=== PATIENT | male | born 1945 | race Caucasian/White ===

== ENCOUNTER 2018-09-18 09:57 | Observation (INO) ==
[2018-09-18] MEDS ORDERED: ASPIRIN PO ONE (10:13)
--- NOTE | 2018-09-18 10:24 | EKG Report ---
Test Performed on : 09/18/2018 10:04:41 AM Test Reason : CP Blood Pressure : / mmHG Vent. Rate : 064 BPM Atrial Rate : 064 BPM P-R Int : 162 ms QRS Dur : 086 ms QT Int : 408 ms P-R-T Axes : 046 000 011 degrees QTc Int : 420 ms Normal sinus rhythm. Normal ECG When compared with ECG of 21-APR-2012 13:00, No significant change was found Unconfirmed Result
[2018-09-18] MEDS ORDERED: NITROGLYCERIN TOP ONE (11:00)
[2018-09-18 12:31] LABS: BASO# 0.01 X1000 (0.0-0.2); BASO% 0.2 % (0.0-0.8); EOS# 0.04 X1000 (0.0-0.7); EOS% 0.7 % (0.0-10.0); HEMATOCRIT 39.6 % (42.0-52.0); HEMOGLOBIN 12.7 g/dL (14.0-18.0); LYMPH# 0.62 X1000 (1.2-3.4); MCH 29.5 PG (27-31); MCHC 32.1 g/dL (33-37); MCV 91.9 FL (81-99); MONO# 0.29 X1000 (0.11-0.59); MONO% 5.2 % (1.7-9.3); MPV 9.8 FL (7.4-10.4); NEUT# 4.66 X1000 (1.4-6.5); NEUT% 82.9 % (42.2-75.2); PLT 231 X1000 (130-400); RBC 4.31 XMIL (4.7-6.1); RDW 13.1 % (11.5-14.5); WBC 5.62 X1000 (4.8-10.8)
[2018-09-18 12:44] LABS: INR 0.94; PROTIME 13.4 Seconds (11.0-16.0)
[2018-09-18 12:45] LABS: PTT 28.7 Seconds (22.3-41.8)
[2018-09-18 12:51] LABS: ALB/GLOB RATIO 1.6; ALBUMIN 4.1 g/dL (3.5-5.0); CREATININE 1.2 mg/dL (0.7-1.2); POTASSIUM 4.7 mmol/L (3.5-5.1); TOTAL BILIRUBIN 0.34 mg/dL (0.20-1.00); TOTAL PROTEIN 6.7 g/dL (6.3-8.3)
--- NOTE | 2018-09-18 13:26 | PROVIDER DOCUMENTATION ---
This chart was entered by Florentin Norman Scribe, acting as scribe for Mandeep Peters MD. HPI-Chest Pain - General Chief Complaint: Chest Pain Stated Complaint: CHEST PAIN Time Seen by Provider: 09/18/18 10:25 Source: patient, family () Allergies/Adverse Reactions: Patient Allergies Allergy/AdvReac Type Severity Reaction Status Date / Time No Known Allergies Allergy Verified 09/18/18 10:12 Home Medications: Home Medication List Medication Instructions Recorded Confirmed Last Taken Type Cyclobenzaprine [Flexeril] 10 mg PO Q8HR #20 tablet 04/21/12 Unknown Rx Hydrocodone/Acetaminophen [Lortab 1 each PO Q4HR #20 tablet 04/21/12 Unknown Rx 7.5-500 Tablet] - History of Present Illness-CP Nature of Presenting Problem: Pt is a 73 y/o M presents to the ED with intermittent chest pain that occurs in the mornings after awakening and last about 5-10 minutes then goes away. The reports today the pain was sharper than it has been. Pt reports in exam the pain is a 5 out of 10. He called his PCP and they suggested he come to the ED for evaluation. 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 She says the pain stays in one place. Location: reports: substernal (left) Chest Pain Radiation: reports: no radiation Quality of Pain: reports: sharp Severity in ED: moderate Onset/Duration: 5 days ago Timing: still present Context/Activities at Onset: reports: none Modifying Factors: improves with: nothing Associated Symptoms: denies: diaphoresis, dizziness, edema, shortness of breath, vomiting, weakness Nitro Today/Relief: no nitro taken today Aspirin Treatment Today: 325 mg x 1, provided by ED Prior Chest Pain/Cardiac Workup: reports: other (CTA in 2015) Similar Symptoms Previously?: No Recently Seen Here or By Another Healthcare Provider: No Review of Systems - Adult - REVIEW OF SYSTEMS - ADULT Constitutional: denies: chills, fever Eyes: reports: no symptoms reported Ears, Nose, Mouth & Throat: reports: no symptoms reported Cardiovascular: reports: chest pain. denies: edema, palpitations Respiratory: denies: cough, shortness of breath Gastrointestinal: denies: abdominal pain, nausea, vomiting Genitourinary: denies: dysuria, discharge Musculoskeletal: denies: back pain, neck pain Integumentary: reports: no symptoms reported Neurological: reports: no symptoms reported Psychiatric: reports: no symptoms reported Endocrine: reports: no symptoms reported Hematologic/Lymphatic: reports: no symptoms reported Allergic/Immunologic: reports: no symptoms reported All Other Systems: Reviewed and Negative Past History - Adult - PAST MEDICAL HISTORY-ADULT Review of Records: reports: Old Records Reviewed, Nursing Assessment Review, Medications Reviewed - SOCIAL HISTORY Smoking: non-smoker, quit greater than 1 year (quit 25 years ago) Substance Use: none/never Living Situation: family Physical Exam-General - PHYSICAL EXAM-ADULT Initial Vital Signs Reviewed: Yes - CONSTITUTIONAL General Appearance: appears well, alert, no apparent distress - EYES Eyes: PERRL/EOMI, pink conjunctivae - HEAD, EARS, NOSE, MOUTH & THROAT HENMT: moist mucous membranes, normal ENT inspection, pharynx normal - NECK Neck: non-tender, full range of motion, supple, normal inspection - RESPIRATORY Respiratory: lungs clear, normal breath sounds, no pleuratic chest pain, no respiratory distress, no accessory muscle use - CARDIOVASCULAR Cardiovascular: normal peripheral pulses, regular rate, rhythm - GASTROINTESTINAL (ABDOMEN) Abdominal Exam: normal bowel sounds, non tender, soft - MUSCULOSKELETAL Back Exam: normal inspection, no CVA tenderness, no vertebral tenderness Extremity: normal range of motion, non-tender, normal gait, normal inspection - SKIN Integumentary: normal color, normal turgor, warm/dry - NEUROLOGIC Neurologic: grossly normal, no motor/sensory deficits - PSYCHIATRIC Psych/Mental Status: normal mood/affect, normal thought content, normal thought process, oriented x 3 - HEART Score HEART Score: History: Moderately Suspicious HEART Score: ECG: Normal HEART Score: Age: > or = 65 Years HEART Score: Risk Factors for Atherosclerotic Disease: 1 or 2 Risk Factors HEART Score: Troponin: < or = Normal Limit Total HEART Score:: 4 Progress - PLAN OF CARE/RESULTS Progress/Plan/Lab Results: Vital Signs - 8 hr 09/18/18 10:09 09/18/18 10:40 09/18/18 10:50 Temperature 97.5 F L Pulse Rate 64 62 63 Respiratory Rate 18 14 15 Blood Pressure 137/81 O2 Sat by Pulse Oximetry 98 98 98 09/18/18 11:00 09/18/18 11:10 09/18/18 11:20 Temperature Pulse Rate 61 66 60 Respiratory Rate 20 16 17 Blood Pressure O2 Sat by Pulse Oximetry 98 99 95 09/18/18 11:30 09/18/18 11:40 09/18/18 11:50 Temperature Pulse Rate 60 61 61 Respiratory Rate 16 14 16 Blood Pressure O2 Sat by Pulse Oximetry 95 95 96 09/18/18 12:00 09/18/18 12:10 Temperature Pulse Rate 58 L 61 Respiratory Rate 15 16 Blood Pressure O2 Sat by Pulse Oximetry 97 96 Laboratory Results - last 24 hr 09/18/18 09/18/18 09/18/18 12:06 12:06 12:06 WBC 5.62 RBC 4.31 L Hgb 12.7 L Hct 39.6 L MCV 91.9 MCH 29.5 MCHC 32.1 L RDW Std Deviation 13.1 Plt Count 231 MPV 9.8 Immature Gran % (Auto) 0.0 Neut % (Auto) 82.9 H Lymph % (Auto) 11.0 L [place] % (Auto) 5.2 Eos % (Auto) 0.7 Baso % (Auto) 0.2 Immature Gran # (Auto) 0.00 Neut # (Auto) 4.66 Lymph # (Auto) 0.62 L [place] # (Auto) 0.29 Eos # (Auto) 0.04 Baso # (Auto) 0.01 PT INR PTT (Actin FS) Sodium 137 Potassium 4.7 Chloride 102 Carbon Dioxide 24 L Anion Gap 11 BUN 24 H Creatinine 1.2 Estimated GFR/1.73 m2 59 BUN/Creatinine Ratio 20 Glucose 97 Calculated Osmolality 278 Calcium 9.0 Total Bilirubin 0.34 AST 17 ALT 12 Alkaline Phosphatase 95 Creatine Kinase 84 Troponin T Dqo-[id number]-Iknqjofbuph Pept 86 Total Protein 6.7 Albumin 4.1 Globulin 2.6 Albumin/Globulin Ratio 1.6 09/18/18 09/18/18 12:06 12:06 WBC RBC Hgb Hct MCV MCH MCHC RDW Std Deviation Plt Count MPV Immature Gran % (Auto) Neut % (Auto) Lymph % (Auto) [place] % (Auto) Eos % (Auto) Baso % (Auto) Immature Gran # (Auto) Neut # (Auto) Lymph # (Auto) [place] # (Auto) Eos # (Auto) Baso # (Auto) PT 13.4 INR 0.94 PTT (Actin FS) 28.7 Sodium Potassium Chloride Carbon Dioxide Anion Gap BUN Creatinine Estimated GFR/1.73 m2 BUN/Creatinine Ratio Glucose Calculated Osmolality Calcium Total Bilirubin AST ALT Alkaline Phosphatase Creatine Kinase Troponin T < 0.010 Wuh-P-Vhtyievqooj Pept Total Protein Albumin Globulin Albumin/Globulin Ratio Orders Category Date Time Status Cardiac Monitoring DIRECTED Care 09/18/18 10:13 Active Oxygen Therapy- ED Nursing DIRECTED Care 09/18/18 10:13 Active Saline Loc NOW Care 09/18/18 10:13 Active CHEST-1 VIEW [RAD] Stat Exams 09/18/18 10:59 Taken CBC WITH ELECTRONIC DIFF [HEME] Stat Lab 09/18/18 12:06 Completed CK PROFILE [SP CHEM] Stat Lab 09/18/18 12:06 Completed COMPREHENSIVE METABOLIC PANEL [CHEM] Stat Lab 09/18/18 12:06 Completed PRO B-NATRIURETIC PEPTIDE Stat Lab 09/18/18 12:06 Completed PROTIME WITH INR [COAG] Stat Lab 09/18/18 12:06 Completed PTT [COAG] Stat Lab 09/18/18 12:06 Completed TROPONIN T Stat Lab 09/18/18 12:06 Completed Aspirin Med 09/18/18 10:13 Discontinued 325 mg PO NOW ONE Nitroglycerin Med 09/18/18 11:00 Discontinued 1 inch TOP NOW ONE CP/SOB/Palp >45 yrs of Age Stat Oth 09/18/18 10:13 Ordered EKG [EKG] Stat Ther 09/18/18 10:13 Draft Result Diagrams: 09/18/18 12:06 09/18/18 12:06 - REASSESSMENT Reassessment #1 Time Reassessed: 13:24 Status: improving (following ASA and NTG paste, pt states pain now 'gone.' I advised admission for further eval, consideration of stress test, pt and spouse agree.) - EKG 1 Time of EKG reading by physician:: 10:04 EKG Read and Signed by:: Mandeep Peters EKG Interpretation (*Must complete 3 of following elements*): Normal Rate: 64 Rhythm: NSR [place]: normal QRS: normal PA Interval: normal ST Wave: normal - CONSULTS/PCP/HOSPITALIST Notification #1 *Consult/PCP/Hospitalist*: Hospitalist- Dr Cortes Time Discussed: 13:23 Reason/Comments: observation Consult Disposition: Admit, other (Admit to [facility]) Departure - Departure Date of Disposition Decision: 09/18/18 Time of Disposition Decision: 13:25 DIAGNOSIS: Chest pain Disposition: ADMITTED INPATIENT 09 Certified Medical Emergency: Emergent Condition: Stable Referrals and Follow-Ups: Aleisha Nguyễn MD [Primary Care Provider] - - Critical Care Note This patient required my direct & personal management of CC.: No Attestation - Physician/ SONNY Attestation The physician spent face to face time with patient:: Yes Advanced Practice Provider documentation review:: Supervising physician onsite and consulted in the evaluation and care of this patient. The physician did have a face to face encounter with the patient. This chart was documented by the indicated scribe, (Florentin Norman Scribe) and accurately reflects the services I performed and decisions made by me, Mandeep Peters MD, as attested by the provider's signature.
--- NOTE | 2018-09-18 13:58 | Diag Imaging Result Doc PS360 ---
EXAM: CHEST-1 VIEW HISTORY: chest pain TECHNIQUE: Chest single view COMPARISON: 04/21/2012 FINDINGS: The lungs are well expanded. The heart is not enlarged. The vessels are not distended. There are no infiltrates. No effusion identified. There is a small hiatal hernia. IMPRESSION: No acute abnormality Electronically signed by Dain Syed 09/18/2018 1:56 PM
[2018-09-18] MEDS ORDERED: LOVENOX SUBQ SCH (14:30)
--- NOTE | 2018-09-18 14:57 | HISTORY AND PHYSICAL ---
PRIMARY CARE PHYSICIAN: Dr. Aleisha Nguyễn CHIEF COMPLAINT: Chest pain. HISTORY OF PRESENT ILLNESS: Mr. Milligan is a 73-year-old male with a history of very mild nonobstructive coronary artery disease per coronary angiography CT in 2014, also with a history of hypertension, hyperlipidemia, and with radiographic evidence of emphysema, who presents with progressively worse chest pain over the past 3 days. Chest pain is described as diffuse, left-sided pain, but is shooting in nature, but does not radiate and is not brought on with anything specific. Pain only lasts seconds to minutes and is not relieved with anything on its own. The pain is not associated with dyspnea, nausea, vomiting or diaphoresis. His reports that he has occasional lower extremity edema, and the patient himself reports that he has occasional and very mild chest pain when he will walk up a flight of steps. He has not had any fever or chills. No cough or sinus drainage. He denies any overt abdominal pain, diarrhea, constipation or dysuria. He came to the ER today for evaluation. In the ER, his labs and diagnostics did not reveal anything acute. He has very mild anemia, and his EKG shows sinus rhythm with very nonspecific ST changes. It was felt he would benefit from outpatient admission. His vitals are stable. He will be admitted for further treatment and evaluation. PAST MEDICAL HISTORY: 1. Mild nonobstructive coronary artery disease per coronary angiography CT on 09/25/2014. 2. Radiographic evidence of emphysema on CT in 2011. 3. Hypertension. 4. Hyperlipidemia. 5. Gastroesophageal reflux. PAST SURGICAL HISTORY: None. SOCIAL HISTORY: He quit smoking 25 years ago. He did smoke, he said, from the time he was a child up until around 49 years. He denies any current tobacco, alcohol or drug use. He is . is at the bedside. FAMILY HISTORY: Both parents , for the most part unknown. He said his mother possibly from congestive heart failure. He has a sister with a pacemaker. REVIEW OF SYSTEMS: A 14-point review of systems was obtained and found to be negative with the exception of the HPI. ALLERGIES: No known drug allergies. HOME MEDICATIONS: Yet to be compiled. PHYSICAL EXAMINATION: VITAL SIGNS: Blood pressure is 137/81, heart rate is 61, respiratory rate is 18, O2 saturation is 96% on room air, temperature 97.5. GENERAL: This is a 73-year-old male lying in the hospital bed in no acute distress. NEUROLOGICAL: Awake, alert and oriented. Follows commands. No focal deficits. HEENT: Head is atraumatic and normocephalic. Pupils are equal, round and reactive to light. Oral mucosa is moist. NECK: Trachea is midline. There is no JVD. CHEST: Diminished at the bases but clear to auscultation bilaterally. CARDIOVASCULAR: Regular rate and rhythm. S1 and S2 noted. No murmurs. GASTROINTESTINAL: Soft, nondistended and nontender. Bowel sounds positive. EXTREMITIES: No edema. Pulses are 1+ bilaterally. DIAGNOSTIC DATA: Chest x-ray has not been reported as of yet. EKG is sinus rhythm without acute ST changes. WBC is 5.68, hemoglobin 12.7, hematocrit 39.6. INR is 0.94. Chemistries unremarkable. Troponin is negative x1 set. ASSESSMENT AND PLAN: 1. Chest pain. Atypical in nature. We will check an echocardiogram and consult Cardiology for ischemic evaluation, as he does have very mild nonobstructive coronary artery disease, but that was some time ago. We will make sure he is on daily aspirin, follow telemetry and follow cardiac enzymes. 2. Hypertension. Continue home medications once reconciled. 3. Hyperlipidemia. Check a lipid panel in the morning. Continue any antihyperlipidemic that he may be on. 4. Anemia. Check iron studies. Treat accordingly. 5. DVT prophylaxis with Lovenox. Further recommendations to follow. Dictated by MOISES Martinez for Curt Frey MD cc: MOISES Martinez MD
--- NOTE | 2018-09-18 15:31 | CARDIOLOGY CONSULTATION ---
DATE: 09/18/2018 HISTORY OF PRESENT ILLNESS: This is a 73-year-old gentleman with a history of mild nonobstructive coronary artery disease per CT angiogram in 2014, history of hypertension, hyperlipidemia, emphysema, comes with complaints of increasing episodes of sharp chest pain. Patient says he had sharp episodes of chest pain which lasted for less than a minute but were recurrent on his left chest, came to the emergency room as these symptoms persisted for 3 days. He was ruled out for myocardial infarction by cardiac enzymes. At the time of my examination patient was pain free. These symptoms were not associated with any diaphoresis. There was no nausea or vomiting. He is otherwise active. There are no palpitations. There is no dizziness or syncope. PAST MEDICAL HISTORY: 1. Mild nonobstructive coronary artery disease by CT angiogram in 2014. 2. Radiographic evidence of emphysema. 3. Hypertension. 4. Hyperlipidemia. 5. Gastroesophageal reflux disease. SOCIAL HISTORY: He quit smoking 25 years ago. There is no history of alcohol abuse. FAMILY HISTORY: Both parents are . No premature family history of coronary artery disease. REVIEW OF SYSTEM: A 14 point review of systems was done.GI system: There is no history of nausea, vomiting, diarrhea. There is no history of hematemesis or melena. Central nervous system: No focal weakness to suggest a CVA or TIA. Genitourinary system: There is no dysuria or hematuria. PHYSICAL EXAMINATION: Vital signs: Blood pressure was 130/81. Cardiovascular System: Normal jugular venous pressure. There is no thyromegaly. There is no carotid bruit. First and second heart sounds were heard. There is no S3, S4, or gallop. Respiratory System: Normal air entry. There are no crepitations or rhonchi. Abdomen: Soft, nontender. There was no guarding or rigidity. Bowel sounds were heard. Central nervous system: Alert and oriented. Was moving all 4 extremities. Extremities: Examination of extremities revealed no pedal edema. HEENT: Atraumatic, normocephalic. Pupils were equal and reacting to light. LABORATORY: Sodium 137, potassium 4.7, BUN 24, creatinine 1.2. Cardiac enzymes were negative. Chest x-ray revealed no abnormality. ASSESSMENT AND PLAN: 1. Mr. Nam Milligan is a 73-year-old gentleman with a history of minimal coronary artery disease, comes with complaints of recurrent episodes of chest discomfort as described above. He has been ruled out for myocardial infarction by cardiac enzymes. We will plan for a Cardiolite stress test to assess for and rule out ischemia. We will also get an echocardiogram to assess cardiac and valvular function. 2. Hypertension. Continue with his home medications. 3. Gastroesophageal reflux, stable. I have not made any other changes to his medications. Thank you for the consult. We will follow hospital course. cc: Marcial Evans MD
[2018-09-18 21:38] LABS: AGAP 14; BUN 24 mg/dL (8-22); CALCIUM 9.3 mg/dL (8.8-10.2); CHLORIDE 103 mmol/L (98-107); COSMO 283; CREATININE 1.1 mg/dL (0.7-1.2); ESTIMATED GFR > 60; GLUCOSE 131 mg/dL (70-104); POTASSIUM 4.1 mmol/L (3.5-5.1); SODIUM 139 mmol/L (136-145); TCO2 22 mmol/L (25-35)
[2018-09-19 07:37] LABS: HEMATOCRIT 36.8 % (42.0-52.0); HEMOGLOBIN 11.9 g/dL (14.0-18.0); MCH 29.9 PG (27-31); MCHC 32.3 g/dL (33-37); MCV 92.5 FL (81-99); MPV 9.8 FL (7.4-10.4); RBC 3.98 XMIL (4.7-6.1); RDW 13.2 % (11.5-14.5); WBC 4.81 X1000 (4.8-10.8)
[2018-09-19] MEDS ORDERED: LEXISCAN ONE (08:55)
[2018-09-19] MEDS ORDERED: ASPIRIN PO SCH ×2 (09:00)
[2018-09-19 12:28] VITALS: BP 135/85
--- NOTE | 2018-09-19 13:20 | ECHO REPORT ---
ORDER DATE: 09/18/2018 INTERPRETING PHYSICIAN: Dr. Hughes REQUESTING PHYSICIAN: Hospitalist. CLINICAL INDICATIONS: 73-year-old male with chest pain. M-MODE MEASUREMENTS: Right ventricle: cm. Left ventricle end diastole: 5.4 cm. Left ventricle end systole: 3.1 cm. Posterior wall: 1.0 cm. Interventricular septum: 0.9 cm. Left atrium: 2.1 cm. Aortic root: 4.3 cm. SUMMARY OF 2-DIMENSIONAL IMAGIN. The left ventricular function is normal, ejection fraction of 60% to 65%. 2. The mitral valve shows mild degree of regurgitation. 3. Pulse wave Doppler of mitral inflow shows reversal of the E and the A ratio. Ratio is 0.8. 4. Tissue Doppler of septal and lateral mitral annulus averages 5 cm. 5. There is impaired left ventricular relaxation. 6. The aortic valve is normal. Color flow mapping unremarkable. 7. The pulmonic is normal. Color flow mapping unremarkable. 8. The tricuspid valve shows trace tricuspid regurgitation. 9. The inferior vena cava is not dilated. 10.Pulmonary pressure is estimated at 29-34 mmHg. 11.There is no pericardial effusion, mass, or thrombus. SUMMARY: The study shows: 1. Normal left ventricular systolic function. 2. Impaired left ventricular relaxation. 3. Pulmonary pressure of 29-34 mmHg. 4. Mild degree of mitral regurgitation. 5. The aortic valve is normal. Clinical correlation is recommended. cc: MD Atif Sheffield CRNP
--- NOTE | 2018-09-19 14:16 | Diag Imaging Result Document ---
PROCEDURE NAME: MYOCARDIAL PERF SCAN, STR/REST - 09/19/2018 PROCEDURE PERFORMED: Lexiscan Cardiolite stress test. DESCRIPTION OF PROCEDURE: Lexiscan was infused per standard protocol. There was no chest pain. Stress electrocardiogram was negative for ischemia. Following Lexiscan infusion, Cardiolite was injected. There were 12.1 mCi of Cardiolite injected for the rest phase and 37.0 mCi of Cardiolite injected for the stress phase. Images revealed chest wall and diaphragmatic attenuation. There is better tracer uptake on stress compared to rest. There is normal myocardial perfusion. Left ventricular ejection fraction 73%. Normal left ventricular cavity size. CONCLUSIONS: 1. No chest pain. 2. Negative Lexiscan stress electrocardiogram. 3. Normal myocardial perfusion. 4. Left ventricular ejection fraction by gated SPECT was 73%. cc: MD Deanna Mejia PA
--- NOTE | 2018-09-19 22:46 | DISCHARGE SUMMARY ---
ADMISSION DATE: 09/18/2018 DISCHARGE DATE: 09/19/2018 DISCHARGE DIAGNOSES: 1. Atypical chest pain. 2. Chest pain, likely in the setting of acute gastritis with or without esophagitis in the setting of prednisone and minocycline use. OTHER DIAGNOSES: 1. Past history of essential hypertension. 2. Past history of hyperlipidemia. 3. 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 However, history is incomplete. The patient is taking minocycline and prednisone for that. CONSULTATION DURING HOSPITALIZATION: Occupational Psychologist, Dr. Evans. DISCHARGE MEDICATIONS: 1. Pravastatin 80 mg at nighttime. 2. Losartan 100 mg daily. 3. Minocycline 50 mg p.o. b.i.d. 4. Omeprazole 20 mg daily. 5. Prednisone 10 mg every other day with breakfast. 6. Metoclopramide 5 mg 4 times a day. 7. Verapamil 240 mg daily. 8. Cyclobenzaprine 10 mg p.o. q.8 hours. 9. Aspirin 81 mg daily, 30 tablets have been prescribed. PHYSICAL EXAMINATION: Vital Signs: At the time of discharge, temperature 97.5, pulse 57, blood pressure 144/82, saturating 97% on room air. General: Does not appear in any acute distress. ENT: Oral cavity is moist. Lungs: Air entry, bilaterally equal. No wheeze, rhonchi, crackles. Cardiovascular: S1, S2 normal. No murmur or gallop. Abdomen: Soft, nontender. No lower extremity edema. Neurologic: Alert and oriented x3. Skin: Examination reveals about 2 x 2 cm erythematous patches on the back. INVESTIGATIONS: Significant investigation during hospital admission, WBC count 4.8, hemoglobin 11.9, platelet count 229. Electrolytes within acceptable range. No microbiological data. Significant imaging during hospital admission: Chest x-ray on admission did not have any acute pathology. Electrocardiogram had suggested normal sinus rhythm. Echocardiogram had suggested normal left ventricular systolic function with ejection fraction of 60 to 65 percent, mild impaired left ventricular relaxation, pulmonary venous pressure of 29 to 34, mild degree of mitral regurgitation with normal aortic valve. Myocardial perfusion scan, nuclear medicine had suggested negative Lexiscan stress, electrocardiogram. Normal myocardial perfusion with normal ejection fraction. HOSPITAL COURSE SUMMARY: Mr. Milligan is a 73-year-old, man, who presented with history of chest pain in substernal region for about 3 days duration. The chest pain was atypical as it was diffuse, left-sided. Shooting in nature without any radiation, lasting for seconds to minutes without any relieving or clear exacerbating factor. It was not associated with dyspnea, nausea, vomiting or diaphoresis, though he did have some occasional lower extremity edema. He had coronary angiography CT scan in 2014 which had mild nonobstructive coronary artery disease. Considering his symptoms, he underwent nuclear medicine stress test imaging for risk stratification. His EKG, echocardiogram, troponins and nuclear medicine stress test were unremarkable. It was thought that his chest pain could be in the setting of acute gastritis, acute esophagitis in the setting of minocycline and prednisone use, which he had been taking for his chronic skin condition for a few months. The patient was advised to continue taking antacid medication. He was also started on aspirin as he previously had history of nonobstructive coronary artery disease. He was advised to follow up with his health claims examiner and regular doctor discussed about possibly tapering down prednisone and minocycline as well as outpatient GI evaluation if continues to have these symptoms. Plan of care was discussed with patient and his at bedside. All of their questions had been answered. TIME SPENT: More than 30 minutes were spent discharging this patient. cc: Noé Carmen MD
== END 2018-09-19 18:00 | disposition home or self-care (01) ==
LOC: 3N 09:57 → ED 09:57 → SUATTDRO 14:11
PROVIDERS: ATTEND Internal Medicine
CPT/HCPCS: 71010; 71045; 78452; 80048; 80053; 80061; 82550; 83721; 83735; 83880; 84484; 85025; 85027; 85610; 85730; 93005; 93017; 93306; 96372; 99285; A9270; A9500; G0378; J1650; J2785